=== PATIENT | female | born 1990 | race Two or more races ===

== ENCOUNTER 2024-11-30 10:52 | Observation (INO) | payer MEDICAID ==
[~2024-11-30] VITALS: Ht 175.3 cm; Wt 68.0 kg
--- NOTE | 2024-11-30 12:05 | DVH ---
CLINICAL HISTORY: Advanced maternal age. Intrauterine growth restriction. COMPARISON: None TECHNIQUE: biophysical profile was performed. Transabdominal sonographic images of the fetus we re obtained. FINDINGS: The fetus is in cephalic position. heart rate measures 151 BPM. Amniotic fluid index measures 10.4 cm. The placenta is anterior in position with no visualized evidence for placenta previ a or abruption. BPP profile is an overall score of 8/8, with 2/2 points for breathing, with at least one episode of breathing over a 30 second duration during a 30 minute observation, 2/2 points for m ovements, with 3 or more discrete body or limb movements, 2/2 points for tone, with one or more episodes of extremity extension with return to flexion, or opening and closing of hand, and 2/ 2 points for amniotic fluid, with at least 1 pocket of amniotic fluid that measures 2 cm in 2 perpend icular planes. IMPRESSION: BPP score of 8/8.
[2024-11-30] MEDS ORDERED: CEPH250C PO (12:19)
[2024-11-30] MEDS ORDERED: PREN-96 PO (12:19)
--- NOTE | 2024-12-01 08:05 | DVHDS2 ---
Physician Discharge Progress N Final Diagnosis: iugr 35wks Operations or Procedures: Operations or Procedures nst,sono Condition on Discharge: Fair Disposition: Home Discharge Instructions: Diet: Regular Activity: No Restrictions, As Tolerated Medications: na Follow Up Care: Specialist: 4d Discharge Statement: "Patient was advised to return to the ER or call 911 if any headaches, dizziness, shortness of breath, chest pain, abdominal pain, bleeding, fevers, or worsening of medical condition. Patient was counseled about treatment plan, medications, possible side effects, patientverbalized understanding. All questions were answered to the best of my ability. This discharge took greater then 30 minutes in planning, reviewing documentation, counseling the patient, and discussing with other team members." Visit Coding OBGYN Date of Service: Nov 30, 2024 Billing Provider: WILLIAM ATKINSON DO LEATHER LACER Common Visit Codes: [id number] INP/OBS CARE (HIGH) LEATHER LACER Procedure Codes: 23121-40- NON-STRESS TEST WILLIAM ATKINSON DO Dec 01, 2024 08:05
== END 2024-11-30 12:31 | disposition home or self-care (01) ==
LOC: LDRP 10:52 → UNDOADMOB 10:52 → LDRP 11:10 → UNDODISOB 12:31
PROVIDERS: ADMIT Obstetrics & Gynecology; ATTEND Obstetrics & Gynecology
DX: O36.5930 Maternal care for other known or suspected poor fetal growth, third trimester, not applicable or unspecified (principal); Z3A.35 35 weeks gestation of pregnancy; Z79.899 Other long term (current) drug therapy
CPT/HCPCS: 59025; 76819; 81002; 94760; G0378

== ENCOUNTER 2024-12-04 07:13 | Observation (INO) | payer MEDICAID ==
[~2024-12-04 07:13] MED LIST: CEPH250C PO; PREN-96 PO
--- NOTE | 2024-12-04 16:47 | DVH ---
EXAM: US BIOPHYSICAL PROFILE HISTORY: IUGR/AMA COMPARISON: US BIOPHYSICAL PROFILE on DOS: 11/30/24 TECHNIQUE: Multiple transabdominal real-time grayscale sonographic images through the gravid uterus of the fetus with duplex Doppler color flow and M-mode spectral analysis Findings/Impression: Single live intrauterine in vertex presentation with heart rate of 127 bpm. Biophysical profile was performed with 2 points for respirations, 2 points for movement, 2 points for tone and 2 points for amniotic fluid index. Biophysical profile score of 8/8. Amniotic fluid is within normal limits with LEAH 12.8 cm and MVP 4.6 cm. Normal LEAH (5-25 cm) Normal MVP (2-8 cm)
--- NOTE | 2024-12-04 19:23 | DVHDS2 ---
Physician Discharge Progress N Final Diagnosis: testing for IUGR/AMA Operations or Procedures: Operations or Procedures 34yo IUP@37.4wks, Pt reports seeing Dr. Chen recently and baby was no longer on IUGR. VSS NST reactive FKC/labor precautions reviewed Pt instructed to discuss Dr. Chen's findings with Dr. Mills at next visit. Dr. Mills consulted, agrees with POC Other Interventions Other Interventions [place] [address] Ph: [phone] DIAGNOSTIC IMAGING Diagnostic Imaging Report : [id number] Signed PATIENT: NEHA DOZIER ACCT: [id number] UNIT: [id number] : 1990 LOC: [facility] ROOM / BED: [facility] / A AGE / SEX: 34 / F ADM STATUS: ADM IN SERVICE 1524 ORDERING PHYSICIAN: YAEL SANTACRUZ CNM PROCEDURE(s): BPP - BIOPHYSICAL PROFILE REASON: IUGR/AMA ORDER NUMBER(s): [id number], ACCESSION NUMBER(s): [id number] EXAM: US BIOPHYSICAL PROFILE HISTORY: IUGR/AMA COMPARISON: US BIOPHYSICAL PROFILE on DOS: 11/30/24 TECHNIQUE: Multiple transabdominal real-time grayscale sonographic images through the gravid uterus of the fetus with duplex Doppler color flow and M-mode spectral analysis Findings/Impression: Single live intrauterine in vertex presentation with heart rate of 127 bpm. Biophysical profile was performed with 2 points for respirations, 2 points for movement, 2 points for tone and 2 points for amniotic fluid index. Biophysical profile score of 8/8. Amniotic fluid is within normal limits with LEAH 12.8 cm and MVP 4.6 cm. Normal LEAH (5-25 cm) Normal MVP (2-8 cm) ATED BY: VICKIE DUNBAR DO DICTATED DATE/TIME: 12/04/241643 SIGNED BY: VICKIE DUNBAR DO SIGNED DATE/TIME: 12/04/241643 CC: Condition on Discharge: Stable Disposition: Home Discharge Instructions: Diet: Regular Activity: No Restrictions, As Tolerated Medications: see med list Follow Up Care: Specialist: f/u in 1 wk Discharge Statement: "Patient was advised to return to the ER or call 911 if any headaches, dizziness, shortness of breath, chest pain, abdominal pain, bleeding, fevers, or worsening of medical condition. Patient was counseled about treatment plan, medications, possible side effects, patientverbalized understanding. All questions were answered to the best of my ability. This discharge took greater then 30 minutes in planning, reviewing documentation, counseling the patient, and discussing with other team members." Visit Coding OBGYN Date of Service: Dec 04, 2024 Billing Provider: YAEL SANTACRUZ CNM CLINICAL ASST Common Visit Codes: [id number] OBS CARE (HIGH) CLINICAL ASST Procedure Codes: 16507-97- NON-STRESS TEST YAEL SANTACRUZ CNM Dec 04, 2024 19:22
== END 2024-12-04 17:00 | disposition home or self-care (01) ==
LOC: LDRP 15:21 → UNDOADMOB 15:21 → LDRP 15:25
PROVIDERS: ADMIT Obstetrics & Gynecology; ATTEND Obstetrics & Gynecology
DX: O36.5930 Maternal care for other known or suspected poor fetal growth, third trimester, not applicable or unspecified (principal); Z98.890 Other specified postprocedural states; Z79.899 Other long term (current) drug therapy; Z3A.37 37 weeks gestation of pregnancy
CPT/HCPCS: 59025; 76819; 81002; 94760; G0378

== ENCOUNTER 2024-12-07 14:07 | Observation (INO) | payer MEDICAID ==
--- NOTE | 2024-12-07 15:19 | DVH ---
EXAM: US Biophysical Profile Without Non-Stress Testing CLINICAL INDICATION: IUGR/AMA TECHNIQUE: Real-time ultrasound of the maternal pelvis for biophysical profile evaluation with image documentation. COMPARISON: US BIOPHYSICAL PROFILE on DOS: 12/04/24, US BIOPHYSICAL PROFILE on DOS: 11/30/24 FINDINGS: BREATHING MOVEMENTS: Present. Score 0/2. GROSS BODY MOVEMENTS: Present. Score 2/2. TONE: Present. Score 2/2. QUALITATIVE AMNIOTIC FLUID VOLUME: Within normal limits. Score 2/2. OTHER FINDINGS: . heart rate 120 beats per minute. Cephalic presentation. LEAH 10.44. Place nta anterior and fundal in position. IMPRESSION: Biophysical profile with score of 6/8. breathing was not noted at the time of this interpretati on. Primary team was notified.
--- NOTE | 2024-12-07 18:23 | DVHDS2 ---
Physician Discharge Progress N Final Diagnosis: IUGR Secondary Diagnosis: Encounter for surveillance Operations or Procedures: Operations or Procedures NST/BPP/ LEAH BPP 01/20 NST reactive Total score / Condition on Discharge: Stable Disposition: Home Discharge Instructions: Diet: Regular Activity: No Restrictions, As Tolerated Activity comment: Strict Kick counts Follow Up/Referral: in 2 to 3 days for repeat NST/BPP /LEAH Medications: N/A Follow Up Care: Discharge Statement: "Patient was advised to return to the ER or call 911 if any headaches, dizziness, shortness of breath, chest pain, abdominal pain, bleeding, fevers, or worsening of medical condition. Patient was counseled about treatment plan, medications, possible side effects, patientverbalized understanding. All questions were answered to the best of my ability. This discharge took greater then 30 minutes in planning, reviewing documentati on, counseling the patient, and discussing with other team members." Visit Coding OBGYN Date of Service: Dec 07, 2024 Billing Provider: KRISTIN HALL DO BULK CLERK Common Visit Codes: 70133-FUP/OBS SAME DATE (MOD) KRISTIN HALL DO Dec 07, 2024 18:23
== END 2024-12-07 15:51 | disposition home or self-care (01) ==
LOC: UNDOADMOB 14:07 → LDRP 14:07
PROVIDERS: ADMIT Obstetrics & Gynecology; ATTEND Obstetrics & Gynecology
DX: O36.5930 Maternal care for other known or suspected poor fetal growth, third trimester, not applicable or unspecified (principal); Z3A.38 38 weeks gestation of pregnancy; Z79.899 Other long term (current) drug therapy; Z98.890 Other specified postprocedural states
CPT/HCPCS: 76819; 81002; 94760; G0378

== ENCOUNTER 2024-12-21 06:24 | Inpatient (IN) | payer MEDICAID ==
[~2024-12-21] VITALS: Ht 175.3 cm; Wt 83.9 kg
--- NOTE | 2024-12-21 11:25 | DVH ---
BIOPHYSICAL PROFILE HISTORY: NST/BPP IUGR AMA TECHNIQUE: Multiple transabdominal real-time grayscale sonographic images through the gravid uterus of the fetus with duplex Doppler color flow and M-mode spectral analysis FINDINGS: BIOPHYSICAL PROFILE: breathing score: 2 movement score: 2 tone score: 2 Quantitative LEAH score: 2 (LEAH: 13.9 Cm.) Total score: 8 The cervix not well visualized. Single live fetus in cephalic presentation. heart rate 129 beats per minute. Grade 3 anterior placenta without previa or abruption IMPRESSION: Biophysical profile score: 8
[2024-12-21] MEDS ORDERED: LIDOCAINE 2%HCL (LOCAL ANESTH.) INJ 20ML MDV IJ PRN (12:15)
[2024-12-21] MEDS ORDERED: BUTORPHANOL TARTRATE 2 MG/1 ML VIAL IV PRN ×2 (12:15)
--- NOTE | 2024-12-21 12:29 | DVHHP2 ---
OB CC & HPI Date Date of Admission: December 21, 2024 Patient Identification: : 3 Para: 0 EDC: December 21, 2024 EGA: 40wks Chief Complaints: Reason for admission: active labor Admission Nurse Assessment Rev: No History of Present Complaints pt is admitted in active labor,no rom or vag bleeding Past Medical History Cardiac: No pertinent Hx Pulmonary: No pertinent Hx Central Nervous System: No pertinent Hx GI: No pertinent Hx Hemotology/Oncology: No pertinent Hx Hepatobiliary: No pertinent Hx Psychiatric: No pertinent Hx Musculoskeletal: No pertinent Hx Rheumotologic: No pertinent Hx Infectious Disease: No peritnent Hx ENT: No pertinent Hx Renal/: No pertinent Hx Endocrine: No pertinent Hx Dermatology: No pertinent Hx Past Surgical History: No pertinent Hx OB History OB History Care: Good Care Ultrasounds: Normal mid trimester US Obstetrical Complications: None Medical Complications: None Allergies: Coded Allergies: NO KNOWN ALLERGIES (Unverified , 11/30/24) Home Meds Reported Medications Cephalexin (KEFLEX CAPSULE) 250 Mg Cp, 1 CAP PO QID, #28 CAP 11/30/24 Vit W/ Ferrous Fumara ( One Daily) Daily Tab, 1 TAB PO DAILY, #90 TAB 3 Refills 11/30/24 Current Medications Current Medications Medications (Trade) Dose Ordered Sig/Giselle Route PRN Reason Start Time Stop Time Status Last Admin Lactated Ringer's 1,000 ml @ 125 mls/hr Q8H IV 12/21/24 12:15 Witch Shefali (Tucks) 1 pad PRN PRN TOP PERINEAL AREA DISCOMFORT 12/21/24 12:15 Sodium Lauryl Sulfate (Phisoderm) 240 ml PRN PRN TOP PERINEAL AREA DISCOMFORT 12/21/24 12:15 Benzocaine (Dermoplast) 1 applic PRN PRN TOP PERINEAL AREA DISCOMFORT 12/21/24 12:15 Butorphanol Tartrate (Stadol Injection) 1 mg Q4HPRN PRN IV MODERATE PAIN (4-6 PAIN SCALE) 12/21/24 12:15 Butorphanol Tartrate (Stadol Injection) 2 mg Q4HPRN PRN IV SEVERE PAIN (7-10 PAIN SCALE) 12/21/24 12:15 Lidocaine HCl (Xylocaine) 20 ml ONCE PRN IJ PERINEAL AREA DISCOMFORT 5/9/25 12:15 Family & Social History Family/Social History Blood Type: Unknown Rubella: unknown RPR/VDRL: Negative GBS Status: Negative HBsAG: Negative Review of Systems Constitutional: No symptom reported Ears, Nose, & Throat: No symptom reported Eyes: No symptom reported Pulmonary/Respiratory: No symptom reported Cardiovascular: No symptom reported Gastrointestinal: No symptom reported Genitourinary: No symptom reported Musculoskeletal: No symptom reported Skin: No symptom reported Psychiatric: No symptom reported Endocrine: No symptom reported Hemotologic/Lymphatic: No symptom reported OB Admission Exam Physical Exam HEENT: TMs Normal, Fontanelles Normal, Nasal Mucosa Normal, Eyes non-injected, Oropharynx Normal, PERRLA, Moist Membranes, EOMI Heart: Rhythm Normal Lungs: Clear Abdomen: Non tender Extremities: Normal Reflexes: Normal Cervical Dilatation: 5cm Effacement: 75% Station: -1 Membranes: Intact Heart Rate: 130's Accelerations: Accelerations Present Decelerations: No Decelerations Short Term Variability: Present Senior Care Variability: Average (6-25) Contractions on Admission: < 5 Minutes Apart Intensity: Moderate OB Plan Plan Admitting Diagnosis: iup at 40 wks in active Labor ama Plan: Expectant Management Other Plan: informed consent obtained start pitocin if needed Visit Coding OBGYN Date of Service: December 21, 2024 Billing Provider: WILLIAM ATKINSON DO LOOM BLOWER Common Visit Codes: [id number] INP/OBS CARE (HIGH) LOOM BLOWER Procedure Codes: 31843-26- NON-STRESS TEST WILLIAM ATKINSON DO December 21, 2024 12:29
[2024-12-21 12:43] LABS: Basophils # (auto) 0.1 10 ^3/uL (0-0.2); Basophils % (auto) 0.4 % (0.0-2.0); Eosinophils # (auto) 0 10 ^3/uL (0-0.8); Hematocrit 43.8 % (36.0-46.0); Lymphocytes # (auto) 0.8 10 ^3/uL (0.4-5.4); Lymphocytes % (auto) 5.8 % (10.0-50.0); Mean Corpuscular Hemoglobin 30.7 pg (28.0-32.0); Mean Corpuscular Hgb Conc. 34.2 g/dL (32.0-36.0); Mean Corpuscular Volume 89.6 fL (80.0-100.0); Monocytes # (auto) 0.5 10 ^3/uL (0-1.3); Monocytes % (auto) 3.3 % (0.0-12.0); Neutrophils # (auto) 13.1 10 ^3/uL (1.6-8.6); Neutrophils % (auto) 90.5 % (37.0-80.0); Platelet Count (auto) 178 10^3/uL (140-450); Red Blood Cells 4.88 10^6/uL (4.0-5.20); Red Cell Distribution Width 13.6 % (11.8-14.3); White Blood Cell 14.4 10^3/uL (4.4-10.8)
[2024-12-21 12:52] LABS: Urine Bacteria FEW /hpf (None Seen); Urine Blood 2+ /uL (Negative); Urine Clarity Turbid (Clear); Urine Color Light-Yellow (Yellow); Urine Mucus FEW (None Seen); Urine Protein, UAD Negative (Negative); Urine Specific Gravity 1.019 (1.001-1.035); Urine Squamous Epithelial Cell MANY /hpf (<5); Urine Urobilinogen Normal (Negative); Urine WBC 31 /HPF (0-5)
[2024-12-21 12:59] LABS: INR 0.9 (0.9-1.15); Partial Thromboplastin Time 28.1 SEC (24.5-34.5); Prothrombin Time 9.6 sec (9.3-11.8)
[2024-12-21 13:00] LABS: Amphetamine Screen, Urine Neg (NEGATIVE); Barbiturate Scree,Urine Neg (NEGATIVE); Benzodiazephine Screen, Urine Neg (NEGATIVE); Cocaine Screen, Urine Neg (NEGATIVE)
[2024-12-21 13:04] LABS: Alanine Aminotransferase 13 U/L (7-40); Albumin 4.1 g/dL (3.2-4.8); Alkaline Phosphatase 200 U/L (46-116); Anion Gap 10 (5-15); Aspartate Aminotransferase 21 U/L (13-40); BUN/Creatinine Ratio 23.1 (10.0-20.0); Blood Urea Nitrogen 12 mg/dL (9-23); Calcium 8.6 mg/dL (8.7-10.4); Carbon Dioxide 21 mmol/L (20-31); Chloride 104 mmol/L (98-107); Glucose 99 mg/dL (74-106); Sodium 135 mmol/L (136-145); Total Protein 6.7 g/dL (5.7-8.2)
[2024-12-21 13:05] LABS: Cannabinoid Screen, Urine Neg (NEGATIVE); Opiate Scree,Urine Neg (NEGATIVE); Phencyclidine Screen, Urine Neg (NEGATIVE)
[2024-12-21] MEDS ORDERED: ePHEDrine SULFATE 50 MG/ML AMP IV ONE (13:30)
[2024-12-21] MEDS ORDERED: LIDOCAINE HCL 2 %PF INJ 10ML AMP IJ ONE (13:30)
[2024-12-21] MEDS ORDERED: NALOXONE HCL 0.4 MG/ML VIAL IV ONE (13:30)
[2024-12-21] MEDS: LACTATED RINGER'S 1,000 ML IV SCH (14:08)
[2024-12-21] MEDS: LACTATED RINGER'S 1,000 ML IV ONE (14:08)
[2024-12-21] MEDS: fentaNYL CITRATE 100 MCG/2 ML VL IV ONE (14:09)
[2024-12-21] MEDS: ROPIVACAINE HCL 200 ML ONE (14:10)
[2024-12-21] MEDS: fentaNYL CITRATE 100 MCG/2 ML VL ONE (14:10)
--- NOTE | 2024-12-21 14:30 | EPIDURAL ---
Anesthesia Procedural Note - Epidural Informed consent obtained?: Yes Medication Administered: Fentanyl 100 mcg Sterile prept drape: Yes Spinal level of insertion: L4-L5 Test dose of lidocaine & Epine: Negative Infusion started: Yes Start time: 13:45 End time: 14:15 Procedure description Procedure description: Called for labor analgesia. Chart reviewed, history taken and patient examined. Patient is here in active labor at 40 weeks, requesting epidural. Informed consent for CSE obtained. Sitting position, sterile prep and drape. Time out done at 1345 (BP 140/78 HR 77 spO2 99). L4-5 space infiltrated with 1% lido. Epidural needle placed with LUIS CARLOS at 6cm. 25G spinal needle +clear CSF. 15mcg fentanyl given IT at 1351 (BP 136/78 HR 80 spO2 99). Epidural catheter secured at 11cm at 1352. Aspiration and test dose (5cc 1.5% lido with epi) negative (BP 133/62 HR 77 spO2 99). 85mcg fentanyl given via epidural at 1354 (BP 130/70 HR 75 spO2 99). Patient reports good pain relief. 0.2% ropivacaine infusion started at 1410 (BP 120/64 HR 73 spO2 98). Will follow as needed. ALBINA LAYTON MD December 21, 2024 14:30
--- NOTE | 2024-12-21 15:00 | DVHPN2 ---
Chief Complaints Patient reports: No new complaints Nursing reports: No new complaints Objective Vitals Vital Signs Date Time Temp Pulse Resp B/P (MAP) Pulse Ox O2 Delivery O2 Flow Rate FiO2 12/21/24 14:10 133/62 Medications Current Medications Medications (Trade) Dose Ordered Sig/Giselle Route PRN Reason Start Time Stop Time Status Last Admin Benzocaine (Dermoplast) 1 applic PRN PRN TOP PERINEAL AREA DISCOMFORT 12/21/24 12:15 Butorphanol Tartrate (Stadol Injection) 1 mg Q4HPRN PRN IV MODERATE PAIN (4-6 PAIN SCALE) 12/21/24 12:15 Butorphanol Tartrate (Stadol Injection) 2 mg Q4HPRN PRN IV SEVERE PAIN (7-10 PAIN SCALE) 12/21/24 12:15 Lactated Ringer's 1,000 ml @ 125 mls/hr Q8H IV 12/21/24 12:15 12/21/24 14:08 Lidocaine HCl (Xylocaine) 20 ml ONCE PRN IJ PERINEAL AREA DISCOMFORT 12/21/24 12:15 Sodium Lauryl Sulfate (Phisoderm) 240 ml PRN PRN TOP PERINEAL AREA DISCOMFORT 12/21/24 12:15 Witch Shefali (Tucks) 1 pad PRN PRN TOP PERINEAL AREA DISCOMFORT 12/21/24 12:15 Others [id number]-7-8CM/80/-1 Studies Laboratory Tests 12/21/24 12:22 Test 12/21/24 12:22 Range/Units Serum Glucose 99 74-106 mg/dL Ass/Plan Assessment ACTIVE LABOR Plan CONT WITH SUPPORTIVE CARE Visit Coding OBGYN Date of Service: December 21, 2024 Billing Provider: WILLIAM ATKINSON DO DOG POUND ATTENDANT Common Visit Codes: [id number] INP/OBS CARE(HIGH) DOG POUND ATTENDANT Procedure Codes: 96120-57- NON-STRESS TEST WILLIAM ATKINSON DO December 21, 2024 15:00
[2024-12-21] MEDS: PHISODERM TOP SOLN 240ML BTL TOP PRN (16:10)
[2024-12-21] MEDS: WITCH HAZEL-GLYCERIN PAD TOP PRN (16:10)
[2024-12-21] MEDS: DERMOPLAST 60ML BOTTLE TOP PRN (16:10)
[2024-12-21] MEDS ORDERED: TERBUTALINE SULFATE 1 MG/ML 1ML VIAL SC PRN (21:45)
[2024-12-21] MEDS: ceFAZolin 2 GM/D5W50ml 50 ML IV ONE (22:06)
[2024-12-21] MEDS: LACT. RINGERS/OXYTOCIN 20UNITS 1,000 ML IV SCH (22:09)
[2024-12-21] MEDS: LACT. RINGERS/OXYTOCIN 20UNITS 500 ML IV ONE (23:37)
[2024-12-21] MEDS: METHYLERGONOVINE MALEATE 0.2 MG/ML AMP IM ONE (23:49)
[2024-12-21] MEDS: CARBOPROST TROMETHAMINE 250 MCG/1ML VIAL IM ONE (23:50)
[2024-12-22] MEDS: LACT. RINGERS/OXYTOCIN 20UNITS 500 ML IV ONE (00:37)
--- NOTE | 2024-12-22 01:00 | DVHPN2 ---
OB Labor Progress Note Date and Time Seen Date Seen: December 21, 2024 Time Seen: 19:50 Subjective Patient reports: No new complaints Objective Vital Signs VSS Monitoring Method Monitoring Method: External Heart Rate Heart Rate Baseline: 120 Heart Rate Variability: Moderate Presence of FHR Accelerations: Yes Presence of FHR Decelerations: No Contractions Duration of Contraction: 85 Contractions Intensity: Moderate Contractions Resting Tone: Relaxed Membranes Membranes: Ruptured Amniotic Fluid Color: Clear Vaginal Exam Vag Exam Deferred: No Vaginal Exam Dilation: 10 Vaginal Exam Effacement: 100 Vaginal Exam Station: 0 Vaginal Exam Presentation: VTX Vaginal Exam Show: None Medications Medications - Pitocin: No Medication - Epidural: Yes Lab Results Lab Results Vital Signs Date Time Temp Pulse Resp B/P (MAP) Pulse Ox O2 Delivery O2 Flow Rate FiO2 12/22/24 06:58 98.3 86 109/59 (76) 96 98.3 I & O 12/22/24 07:00 Output Total 200 ml Balance -200 ml Output Urine Total 200 ml # Sanitary Pads 0 Current Medications Medications (Trade) Dose Ordered Sig/Giselle Start Time Stop Time Status Last Admin Dose Admin Lactated Ringer's 1,000 ml @ 125 mls/hr Q8H 12/21/24 12:15 12/21/24 14:08 125 MLS/HR Witch Shefali (Tucks) 1 pad PRN PRN 12/21/24 12:15 12/21/24 16:10 1 PAD Sodium Lauryl Sulfate (Phisoderm) 240 ml PRN PRN 12/21/24 12:15 12/21/24 16:10 240 ML Benzocaine (Dermoplast) 1 applic PRN PRN 12/21/24 12:15 12/21/24 16:10 1 APPLIC Butorphanol Tartrate (Stadol Injection) 1 mg Q4HPRN PRN 12/21/24 12:15 Butorphanol Tartrate (Stadol Injection) 2 mg Q4HPRN PRN 12/21/24 12:15 Lidocaine HCl (Xylocaine) 20 ml ONCE PRN 12/21/24 12:15 Oxytocin 500 ml @ 999 mls/hr Q31M ONCE 12/21/24 12:15 12/21/24 12:45 DC 12/21/24 23:37 999 MLS/HR Oxytocin 500 ml @ 125 mls/hr Q4H ONCE 12/21/24 12:45 12/21/24 16:44 DC 12/22/24 00:37 125 MLS/HR Naloxone HCl (Narcan) 0.2 mg PRN ONCE 12/21/24 13:30 12/21/24 13:40 DC Ephedrine Sulfate (ePHEDrine SULFATE) 50 mg PRN ONCE 12/21/24 13:30 12/21/24 13:40 DC Fentanyl Citrate 100 mcg ONCE ONCE 12/21/24 13:30 12/21/24 13:40 DC 12/21/24 14:09 100 MCG Lidocaine HCl (Xylocaine-Pf 2% Injection) 10 ml ONCE ONCE 12/21/24 13:30 12/21/24 13:40 DC Lactated Ringer's 1,000 ml @ 1,000 mls/hr Q1H ONCE 12/21/24 13:30 12/21/24 14:29 DC 12/21/24 14:08 1,000 MLS/HR Oxytocin 1,000 ml @ 6 ml/hr Q24H 12/21/24 21:45 12/21/24 22:09 6 ML/HR Terbutaline Sulfate (Brethine Inj) 0.25 mg ONCE PRN 12/21/24 21:45 Cefazolin Sodium/ Dextrose 50 ml @ 50 mls/hr ONCE ONCE 12/21/24 22:00 12/21/24 22:59 DC 12/21/24 22:06 50 MLS/HR Cefazolin Sodium 50 ml @ 100 mls/hr Q8HR 12/22/24 06:00 12/22/24 05:43 100 MLS/HR Ibuprofen (Motrin Tablet) 600 mg Q6HP PRN 12/22/24 01:30 12/22/24 07:06 600 MG Acetaminophen (Tylenol Tablet) 650 mg Q4HP PRN 12/22/24 01:30 12/22/24 04:35 650 MG Docusate Sodium (Colace Capsule) 200 mg HS 12/22/24 22:00 Laboratory Tests Test 12/21/24 12:34 12/21/24 12:22 Range/Units Urine Color Light-yellow Yellow Urine Clarity Turbid H Clear Urine pH 6.0 5.0-9.0 Urine Specific [place] 1.019 1.001-1.035 Urine Protein Negative Negative Urine Ketones Negative Negative Urine Blood 2+ H Negative /uL Urine Nitrite Negative Negative Urine Bilirubin Negative Negative Urine Urobilinogen Normal Negative mg/dL Urine Leukocyte Esterase 3+ Negative /uL Urine RBC 25 0 - 4 /hpf Urine Microscopic WBC 31 H 0-5 /HPF Urine Squamous Epithelial Cells Many <5 /hpf Urine Bacteria Few H None Seen /hpf Urine Mucus Few None Seen Urine Glucose Normal Normal mg/dL Urine Opiates Screen Neg NEGATIVE Urine Fentanyl Screen Neg NEGATIVE Urine Barbiturates Screen Neg NEGATIVE Urine Phencyclidine Screen Neg NEGATIVE Urine Amphetamines Screen Neg NEGATIVE Urine Benzodiazepines Screen Neg NEGATIVE Urine Cocaine Screen Neg NEGATIVE Urine Cannabinoids Screen Neg NEGATIVE White Blood Count 14.4 H 4.4-10.8 10^3/uL Red Blood Count 4.88 4.0-5.20 10^6/uL Hemoglobin 15.0 12.2-16.2 g/dL Hematocrit 43.8 36.0-46.0 % Mean Corpuscular Volume 89.6 80.0-100.0 fL Mean Corpuscular Hemoglobin 30.7 28.0-32.0 pg Mean Corpuscular Hemoglobin Concent 34.2 32.0-36.0 g/dL Red Cell Distribution Width 13.6 11.8-14.3 % Platelet Count 178 140-450 10^3/uL Mean Platelet Volume 8.3 6.9-10.8 fL Neutrophils (%) (Auto) 90.5 H 37.0-80.0 % Lymphocytes (%) (Auto) 5.8 L 10.0-50.0 % Monocytes (%) (Auto) 3.3 0.0-12.0 % Eosinophils (%) (Auto) 0.0 0.0-7.0 % Basophils (%) (Auto) 0.4 0.0-2.0 % Neutrophils # (Auto) 13.1 H 1.6-8.6 10 ^3/uL Lymphocytes # (Auto) 0.8 0.4-5.4 10 ^3/uL Monocytes # (Auto) 0.5 0-1.3 10 ^3/uL Eosinophils # (Auto) 0 0-0.8 10 ^3/uL Basophils # (Auto) 0.1 0-0.2 10 ^3/uL Nucleated Red Blood Cells 0.0 % Prothrombin Time 9.6 9.3-11.8 sec Prothrombin Time INR 0.90 0.9-1.15 Activated Partial Thromboplast Time 28.1 24.5-34.5 SEC Sodium Level 135 L 136-145 mmol/L Potassium Level 4.0 3.5-5.1 mmol/L Chloride Level 104 98-107 mmol/L Carbon Dioxide Level 21 20-31 mmol/L Anion Gap 10 5-15 Blood Urea Nitrogen 12 9-23 mg/dL Creatinine 0.52 L 0.550-1.02 mg/dL Glomerular Filtration Rate Calc 123 >90 mL/min BUN/Creatinine Ratio 23.1 H 10.0-20.0 Serum Glucose 99 74-106 mg/dL Calcium Level 8.6 L 8.7-10.4 mg/dL Total Bilirubin 1.0 0.2-1.0 mg/dL Aspartate Amino Transferase (AST) 21 13-40 U/L Alanine Aminotransferase (ALT) 13 7-40 U/L Alkaline Phosphatase 200 H 46-116 U/L Total Protein 6.7 5.7-8.2 g/dL Albumin 4.1 3.2-4.8 g/dL Assessment Assessment IUP at 40 weeks Category 1 FHR tracing Plan Plan Reposition pt to facilitate descent continue EFM Anticipate Plan discussed with: Patient, Spouse Visit Coding OBGYN Date of Service: December 21, 2024 Billing Provider: KORI JOHNSON CNM RIGGER UP Common Visit Codes: [id number] INP/OBS CARE(HIGH) RIGGER UP Procedure Codes: 88544-60- NON-STRESS TEST KORI JOHNSON CNM December 22, 2024 01:00
--- NOTE | 2024-12-22 01:23 | LDN2 ---
Labor and Delivery Note Date 12/22/24 Age 34 3 Para 0 AB 2 EDC 12/21/24 EGA 40w 0d Diagnosis IUP at 40w Vaginal Delivery: VTX Vacuum Assisted: No Placenta: Manual Sex: Female Weight 7Lbs 3oz (3265g) Apgars 8 & 9 at one and five minutes of life respectively Nuchal Cord Transected: No Amniotic Fluid: Clear Anesthesia Labor Epidural Episiotomy: Yes Extension: Yes Repaired with 2-0 Chromic suture EBL 350mLs Labs Blood Bank 12/21/24 12:22: Blood Type O NEGATIVE Complications Retained placents. Manually removed by Dr Mills Conditions Mother and baby in stable condition Chemical Test Engineer Dann Comments/Significant Med Ezequiel At 2257, 34yo, now delivered a viable Female by w/ Score of 8 & 9 at one & five minutes of life respectively. ASHLEY position placed skin to skin on pt's chest. Cord clamped and cut after pulsation ceased. Unable to obtain cord blood. Placenta retained and was manually delivered by Dr Priyanka Mills delivered spontaneously, [place]. Pitocin IV bolus started. Placenta sent to pathology. Patient had labor epidural anesthesia. Cervix/vagina inspected. Cervix intact. MLE and Right labial laceration repaired with 2-0 Chromic suture. Fundus at U, firm, midline, and light lochia. QBL 350ml. VSS. Count correct x2. Rectal mucosa and sphincter intact. Rectal exam performed, WNL, not involved. Patient to care and baby to couplet care, both stable. Visit Coding OBGYN Date of Service: December 21, 2024 Billing Provider: KORI JOHNSON CNM PRESS SET UP PERSON Common Visit Codes: [id number] INP/OBS CARE(HIGH) PRESS SET UP PERSON Procedure Codes: 58551-JYK DELIVERY ONLY KORI JOHNSON CNM December 22, 2024 01:23
[2024-12-22 02:40] VITALS: BP 120/59; PULSE 99; TEMP 98; O2SAT 96
[2024-12-22] MEDS: ACETAMINOPHEN 325 MG TAB PO PRN (04:35)
[2024-12-22] MEDS: ceFAZolin 1GM/50ML 50 ML IV SCH (05:43)
[2024-12-22 06:58] VITALS: BP 109/59; PULSE 86; TEMP 98.3; O2SAT 96
[2024-12-22] MEDS: IBUPROFEN 600 MG TAB PO PRN (07:06)
--- NOTE | 2024-12-22 07:38 | DVHPN2 ---
Progress Note Date Seen: December 22, 2024 Subjective S: Lochia normal amount Tolerating regular diet well. Ambulating and voiding well w/o feeling lightheaded or dizzy. Passing flatus but no BM yet. Breast feeding. Contraceptive plan: undecided vital signs Vital Sign Date Time Temp Pulse Resp B/P (MAP) Pulse Ox O2 Delivery O2 Flow Rate FiO2 12/22/24 06:58 98.3 86 109/59 (76) 96 98.3 Total Intake and Output 12/21/24 12/21/24 12/22/24 15:00 23:00 07:00 Output Total 200 ml Balance -200 ml medications Current Medications Medications Dose Ordered Sig/Giselle Route Start Time Stop Time Status Last Admin Dose Admin Lactated Ringer's 1,000 ml @ 125 mls/hr Q8H IV 12/21/24 12:15 12/21/24 14:08 125 MLS/HR Witch Shefali 1 pad PRN PRN TOP 12/21/24 12:15 12/21/24 16:10 1 PAD Sodium Lauryl Sulfate 240 ml PRN PRN TOP 12/21/24 12:15 12/21/24 16:10 240 ML Benzocaine 1 applic PRN PRN TOP 12/21/24 12:15 12/21/24 16:10 1 APPLIC Butorphanol Tartrate 1 mg Q4HPRN PRN IV 12/21/24 12:15 Butorphanol Tartrate 2 mg Q4HPRN PRN IV 12/21/24 12:15 Lidocaine HCl 20 ml ONCE PRN IJ 12/21/24 12:15 Oxytocin 1,000 ml @ 6 ml/hr Q24H IV 12/21/24 21:45 12/21/24 22:09 6 ML/HR Terbutaline Sulfate 0.25 mg ONCE PRN SC 12/21/24 21:45 Cefazolin Sodium 50 ml @ 100 mls/hr Q8HR IV 12/22/24 06:00 12/22/24 05:43 100 MLS/HR Ibuprofen 600 mg Q6HP PRN PO 12/22/24 01:30 12/22/24 07:06 600 MG Acetaminophen 650 mg Q4HP PRN PO 12/22/24 01:30 12/22/24 04:35 650 MG Docusate Sodium 200 mg HS PO 12/22/24 22:00 laboratory and microbiology Laboratory Tests 12/21/24 12:22 Test 12/21/24 12:22 Range/Units Serum Glucose 99 74-106 mg/dL Objective O: A&O x3 NAD. Afebrile, VSS Chest: heart and lung sounds normal. Breasts: Nipples intact w/o cracks or soreness Abdomen: normal BS, soft, non-tender, no rebound or guarding, fundus firm @ U, lochia minimal Perineum:- no edema, or erythema, Incision & laceration site with sutures intact, edges in good approximation. Extremities: no edema or tenderness Lochia - minimal Assessment/Plan A/P 34 yo now ppd#1 s/p doing well. Blood Type: O Rh: Negative Breast feeding Rubella Immune Pain control with oral medications Bowel regimen: Increase fluid intake and fiber in diet, Laxative PRN PP BCM Plan: undecided Plan discussed with: Patient, Spouse Visit Coding OBGYN Date of Service: December 22, 2024 Billing Provider: KORI JOHNSON CNM [employer] Common Visit Codes: [id number] INP/OBS CARE(HIGH) KORI JOHNSON CNM December 22, 2024 07:38
[2024-12-22 11:28] VITALS: BP 112/58; PULSE 77; RESP 16; TEMP 98.2; O2SAT 97
[2024-12-22 15:30] VITALS: BP 112/66; PULSE 84; RESP 18; TEMP 98.2; O2SAT 97
[2024-12-22] MEDS: DOCUSATE SOD 100 MG CAP PO SCH (21:32)
[2024-12-22 23:00] VITALS: BP 113/64; PULSE 78; RESP 16; TEMP 98; O2SAT 96
[2024-12-23] MEDS: CEPHALEXIN 250 MG CAP PO SCH (00:21)
[2024-12-23] MEDS: RHO (D) IMMUNE GLOBULIN 300 MCG INJ IM ONE (02:41)
[2024-12-23 02:55] VITALS: BP 112/62; PULSE 78; RESP 18; TEMP 98.2; O2SAT 96
[2024-12-23] MEDS: BISACODYL 10 MG RECT SUPP PR ONE (06:00)
[2024-12-23 07:00] VITALS: BP 109/57; PULSE 71; RESP 18; TEMP 98.4; O2SAT 97
--- NOTE | 2024-12-23 07:11 | DVHPN2 ---
Progress Note Date Seen: December 23, 2024 Subjective S: Lochia minimal Tolerating regular diet well. Ambulating and voiding well w/o feeling lightheaded or dizzy. Passing flatus. Very small hard BM x1. Breast feeding. Contraceptive plan: undecided Desires and requests to be discharged home today vital signs Vital Sign Date Time Temp Pulse Resp B/P (MAP) Pulse Ox O2 Delivery O2 Flow Rate FiO2 12/23/24 02:55 98.2 78 18 112/62 (79) 96 98.2 Total Intake and Output 12/22/24 12/22/24 12/23/24 15:00 23:00 07:00 Output Total 500 ml 500 ml Balance -500 ml -500 ml medications Current Medications Medications Dose Ordered Sig/Giselle Route Start Time Stop Time Status Last Admin Dose Admin Lactated Ringer's 1,000 ml @ 125 mls/hr Q8H IV 12/21/24 12:15 12/21/24 14:08 125 MLS/HR Cortney Meehan 1 pad PRN PRN TOP 12/21/24 12:15 12/21/24 16:10 1 PAD Sodium Lauryl Sulfate 240 ml PRN PRN TOP 12/21/24 12:15 12/21/24 16:10 240 ML Benzocaine 1 applic PRN PRN TOP 12/21/24 12:15 12/21/24 16:10 1 APPLIC Ibuprofen 600 mg Q6HP PRN PO 12/22/24 01:30 12/23/24 01:09 600 MG Acetaminophen 650 mg Q4HP PRN PO 12/22/24 01:30 12/23/24 05:50 650 MG Docusate Sodium 200 mg HS PO 12/22/24 22:00 12/22/24 21:32 200 MG Cephalexin 500 mg Q6HR PO 12/23/24 00:00 12/23/24 05:42 500 MG laboratory and microbiology Laboratory Tests 12/21/24 12:22 Test 12/21/24 12:22 Range/Units Serum Glucose 99 74-106 mg/dL Objective O: A&O x3 NAD. Afebrile, VSS Chest: heart and lung sounds normal. Breasts: Nipples intact w/o cracks or soreness Abdomen: normal BS, soft, non-tender, no rebound or guarding, fundus firm @ U- 1, lochia minimal Perineum:- no edema, or erythema, Incision & laceration site with sutures intact, edges in good approximation. Extremities: no edema or tenderness Lochia - minimal Assessment/Plan 34 yo now ppd#2 s/p doing well. Blood Type: O Rh: Negative; Rhogam given. Breast feeding Rubella Immune Pain control with oral medications Bowel regimen: Increase fluid intake and fiber in diet, Laxative PRN PP Contraception Plan: undecided Discharge plan: May discharge home later today if condition remains stable Plan discussed with: Patient, Spouse Visit Coding OBGYN Date of Service: December 23, 2024 Billing Provider: KORI JOHNSON CNM [employer] Common Visit Codes: [id number] INP/OBS CARE(HIGH) KORI JOHNSON CNM December 23, 2024 07:11
--- NOTE | 2024-12-23 07:24 | DVHDS2 ---
Discharge Summary Date of Admission December 21, 2024 at 12:02 Date of Discharge: December 23, 2024 Admitting Diagnosis IUP at 40weesk 0d AMA Labor Labs/Diagnostic Data: Laboratory Results Test 12/21/24 12:34 12/21/24 12:22 Urine Color Light-yellow (Yellow) Urine Clarity Turbid (Clear) Urine pH 6.0 (5.0-9.0) Urine Specific Allen 1.019 (1.001-1.035) Urine Protein Negative (Negative) Urine Ketones Negative (Negative) Urine Blood 2+ /uL (Negative) Urine Nitrite Negative (Negative) Urine Bilirubin Negative (Negative) Urine Urobilinogen Normal mg/dL (Negative) Urine Leukocyte Esterase 3+ /uL (Negative) Urine RBC 25 /hpf (0 - 4) Urine Microscopic WBC 31 /HPF (0-5) Urine Squamous Epithelial Cells Many /hpf (<5) Urine Bacteria Few /hpf (None Seen) Urine Mucus Few (None Seen) Urine Glucose Normal mg/dL (Normal) Urine Opiates Screen Neg (NEGATIVE) Urine Fentanyl Screen Neg (NEGATIVE) Urine Barbiturates Screen Neg (NEGATIVE) Urine Phencyclidine Screen Neg (NEGATIVE) Urine Amphetamines Screen Neg (NEGATIVE) Urine Benzodiazepines Screen Neg (NEGATIVE) Urine Cocaine Screen Neg (NEGATIVE) Urine Cannabinoids Screen Neg (NEGATIVE) White Blood Count 14.4 10^3/uL (4.4-10.8) Red Blood Count 4.88 10^6/uL (4.0-5.20) Hemoglobin 15.0 g/dL (12.2-16.2) Hematocrit 43.8 % (36.0-46.0) Mean Corpuscular Volume 89.6 fL (80.0-100.0) Mean Corpuscular Hemoglobin 30.7 pg (28.0-32.0) Mean Corpuscular Hemoglobin Concent 34.2 g/dL (32.0-36.0) Red Cell Distribution Width 13.6 % (11.8-14.3) Platelet Count 178 10^3/uL (140-450) Mean Platelet Volume 8.3 fL (6.9-10.8) Neutrophils (%) (Auto) 90.5 % (37.0-80.0) Lymphocytes (%) (Auto) 5.8 % (10.0-50.0) Monocytes (%) (Auto) 3.3 % (0.0-12.0) Eosinophils (%) (Auto) 0.0 % (0.0-7.0) Basophils (%) (Auto) 0.4 % (0.0-2.0) Neutrophils # (Auto) 13.1 10 ^3/uL (1.6-8.6) Lymphocytes # (Auto) 0.8 10 ^3/uL (0.4-5.4) Monocytes # (Auto) 0.5 10 ^3/uL (0-1.3) Eosinophils # (Auto) 0 10 ^3/uL (0-0.8) Basophils # (Auto) 0.1 10 ^3/uL (0-0.2) Nucleated Red Blood Cells 0.0 % Prothrombin Time 9.6 sec (9.3-11.8) Prothrombin Time INR 0.90 (0.9-1.15) Activated Partial Thromboplast Time 28.1 SEC (24.5-34.5) Sodium Level 135 mmol/L (136-145) Potassium Level 4.0 mmol/L (3.5-5.1) Chloride Level 104 mmol/L (98-107) Carbon Dioxide Level 21 mmol/L (20-31) Anion Gap 10 (5-15) Blood Urea Nitrogen 12 mg/dL (9-23) Creatinine 0.52 mg/dL (0.550-1.02) Glomerular Filtration Rate Calc 123 mL/min (>90) BUN/Creatinine Ratio 23.1 (10.0-20.0) Serum Glucose 99 mg/dL (74-106) Calcium Level 8.6 mg/dL (8.7-10.4) Total Bilirubin 1.0 mg/dL (0.2-1.0) Aspartate Amino Transferase (AST) 21 U/L (13-40) Alanine Aminotransferase (ALT) 13 U/L (7-40) Alkaline Phosphatase 200 U/L (46-116) Total Protein 6.7 g/dL (5.7-8.2) Albumin 4.1 g/dL (3.2-4.8) Other Laboratory Tests 12/21/24 12:22 Brief Hx & Hospital Course: Ms Hale was admitted on 12/21/24 at 40weeks gestation in labor. Labor progressed to second stage, delivered a viable baby girl on 12/21/24 at 2257. Placenta was retained and same was manually removed by Dr. Mills after one our in 3rd stage of labor. See delivery record for details. course uneventful, patient ambulating and voiding well, infant w/o problem.Bonding well with . Operations or Procedures , Manual removal of placenta. Condition at Discharge: Stable Final Diagnosis/Problems List Term - Delivered IUP at 40weeks Labor Retained Placenta; Manually Removed Discharge Disposition: Home Discharge Instruct/Medications Diet: Regular Diet comment: Routine regular diet rich in fiber, protein, iron and vitamin C with adequate fluid intake Activity: No Restrictions, As Tolerated Activity comment: Unrestricted. Advance as tolerated. No heavy lifting, pushing or straining. Pelvic rest x 6weeks Follow Up/Referral: self care instructions given. emergency signs and symptoms including pre-eclampsia precautions and signs of PPD reviewed with patient. Follow up with OB Provider in 1 week Medications: Ibuprofen 600mg every 6 hours as needed for pain. Docusate sodium PRN Discharge Statement: self care instructions given. emergency signs and symptoms including pre-eclampsia precautions and signs of PPD reviewed with patient. Follow up with OB Provider in 1 week "Patient was advised to return to the ER or call 911 if any headaches, dizziness, shortness of breath, chest pain, abdominal pain, bleeding, fevers, or worsening of medical condition. Patient was counseled about treatment plan, medications, possible side effects, patientverbalized understanding. All questions were answered to the best of my ability. This discharge took greater then 30 minutes in planning, reviewing documentation, counseling the patient, and discussing with other team members." ASSESSMENT ASSESSMENT Hospital Course Ms Hale was admitted on 12/21/24 at 40weeks gestation in labor. Labor progressed to second stage, delivered a viable baby girl on 12/21/24 at 2257. Placenta was retained and same was manually removed by Dr. Mills after one our in 3rd stage of labor. See delivery record for details. course uneventful, patient ambulating and voiding well, w/o problem.Bonding well with infant. Assessment Term - Delivered IUP at 40weeks Labor Retained Placenta; Manually Removed Visit Coding OBGYN Date of Service: December 23, 2024 Billing Provider: KORI JOHNSON CNM [employer] Common Visit Codes: [id number] DISCH DAY <30MIN KORI JOHNSON CNM December 23, 2024 07:24
[2024-12-23] MEDS ORDERED: DOCU-94 PO (08:00)
[2024-12-23 11:00] VITALS: BP 111/55; PULSE 76; RESP 18; TEMP 98.4; O2SAT 97
[2024-12-23 13:00] VITALS: BP 112/78; PULSE 78; RESP 18; TEMP 98; O2SAT 97
== END 2024-12-23 13:00 | disposition home or self-care (01) | DRG 560 ==
LOC: LDRP 10:15 → OBSVTOIN 12:02 → LDRP 18:54
PROVIDERS: ADMIT Obstetrics & Gynecology; ATTEND Obstetrics & Gynecology
PROC: 10E0XZZ Delivery of Products of Conception, External Approach (ICD-10-PCS; principal; 2024-12-21)
PROC: 0W8NXZZ Division of Female Perineum, External Approach (ICD-10-PCS; 2024-12-21)
PROC: 0HQ9XZZ Repair Perineum Skin, External Approach (ICD-10-PCS; 2024-12-21)
PROC: 3E0R3BZ Introduction of Anesthetic Agent into Spinal Canal, Percutaneous Approach (ICD-10-PCS; 2024-12-21)
PROC: 00HU33Z Insertion of Infusion Device into Spinal Canal, Percutaneous Approach (ICD-10-PCS; 2024-12-21)
DX: O48.0 Post-term pregnancy (principal); Z37.0 Single live birth; O26.893 Other specified pregnancy related conditions, third trimester; Z3A.40 40 weeks gestation of pregnancy; Z67.41 Type O blood, Rh negative; O70.0 First degree perineal laceration during delivery
CPT/HCPCS: 36415; 59409; 62282; 76819; 80053; 80307; 81001; 81002; 85025; 85610; 85730; 86850; 86870; 86900; 86901; 90384; 94760; 94762; 96360; 96361; 96365; 96366; 96372; G0378; J2590